=== PATIENT | male | born 1975 | race Caucasian/White ===

== ENCOUNTER 2019-06-19 14:21 | Emergency (ER) | payer BC, OTHER ==
[2019-06-19 14:34] VITALS: BMI 25.6
--- NOTE | 2019-06-19 15:25 | PDOC ---
History of Present Illness - General Chief Complaint: Pain Stated Complaint: SENT BY PCP/ABD PAIN Time Seen by Provider: 06/19/19 15:21 - History of Present Illness Initial Comments: 44 y/o M with hx significant for kidney stones and chronic watery diarrhea, present to the ER with 3 days of LLQ pain. that began after sexual intercourse. Timing/Duration: reports: intermittent Quality: reports: moderate, throbbing Abdominal Pain Onset Location: reports: LLQ Pain Radiation: reports: no radiation. denies: RLQ, epigastric, flank, groin Activities at Onset: reports: sexual intercourse Treatment Prior to Arrive: improves with: other (Pt. presented from urgent care , where he was given IM toradol and got a CT w/o contrast concerning for divertculitis. Sent from urgent care for further evaluation) Aggravating Factors: improves with: Movement, Change in position (denies fevers , chills, nausea, vomiting, bloody stools, dysuria, hematuria,) Past History - Past Medical History Allergies/Adverse Reactions: Allergies Allergy/AdvReac Type Severity Reaction Status Date / Time Penicillins Allergy Verified 06/19/19 14:29 clindamycin AdvReac Mild Verified 06/19/19 14:42 Home Medications: Ambulatory Orders Ciprofloxacin [Cipro -] 500 mg PO BID 10 Days #20 tablet 06/19/19 Metronidazole 500 mg PO TID 10 Days #30 tablet 06/19/19 - Psycho Social/Smoking Cessation Hx Smoking History: Current every day smoker Number of Cigarettes Smoked Daily: 0 Information on smoking cessation initiated: Yes Hx Alcohol Use: Yes Drug/Substance Use Hx: No *Physical Exam - Vital Signs Last Vital Signs Temp Pulse Resp BP Pulse Ox 98.1 F 83 18 121/79 97 06/19/19 14:29 06/19/19 14:29 06/19/19 14:29 06/19/19 14:29 06/19/19 14:29 - Physical Exam 06/19/19 17:11 06/19/19 17:06 PE: GENERAL: Awake, alert, and fully oriented, in no acute distress HEAD: No signs of trauma, normocephalic, atraumatic EYES: EOMI, sclera anicteric, conjunctiva clear ENT: Auricles normal inspection, hearing grossly normal, nares patent, oropharynx clear without exudates. Moist mucosa NECK: Normal ROM, supple, no lymphadenopathy, JVD, or masses LUNGS: No distress, speaks full sentences, clear to auscultation bilaterally HEART: Regular rate and rhythm, normal S1 and S2, no murmurs, rubs or gallops, peripheral pulses normal and equal bilaterally. ABDOMEN: Soft, tenderness and guarding in LLQ. no CVA tenderness. : no testicular tenderness, penile discharge. testicles in normal alignment. EXTREMITIES : Normal inspection, Normal range of motion, no edema. No clubbing or cyanosis NEUROLOGICAL: Cranial nerves II through XII grossly intact. Normal speech, no focal sensorimotor deficits SKIN: Warm, Dry, normal turgor, no rashes or lesions noted ED Treatment Course - LABORATORY CBC & Chemistry Diagram: 06/19/19 15:45 06/19/19 15:45 Medical Decision Making - Medical Decision Making 06/19/19 17:12 44 y/o M with hx significant for kidney stones and chronic watery diarrhea, present to the ER with 3 days of LLQ pain. that began after sexual intercourse. [facility] ([facility]) contacted for CT findings cbc,cmp, ua, urine culture. CT findings from [facility] Impression mild to moderate acaute diverticulitis in the mid descending colon with a small amount of fluid in the paracolic gutter no extraluminal gas scattered sigmoid and left colonic diverticula fatty liver tiny nonobstructing left renal calculus cbc,cmp, ua, unremarkable patient discharged with PO antibiotics, ciprofloxacin and flagyl. Discharge - Discharge Information Problems reviewed: Yes Clinical Impression/Diagnosis: Diverticulitis large intestine Qualifiers: Diverticulitis bleeding: without bleeding Diverticulitis complication: without perforation or abscess Qualified Code(s): K57.32 - Diverticulitis of large intestine without perforation or abscess without bleeding Condition: Stable Disposition: HOME - Admission No - Additional Discharge Information Prescriptions: Ciprofloxacin [Cipro -] 500 mg PO BID 10 Days #20 tablet Metronidazole 500 mg PO TID 10 Days #30 tablet - Follow up/Referral - Patient Discharge Instructions Patient Printed Discharge Instructions: DI for Diverticulitis Additional Instructions: Follow the enclosed discharge instructions. take flagyl 500 mg twice daily for two weeks. you should also take ciprofloxacin 500 mg twice daily for two weeks. take tylenol as needed for pain 500 mg every 6 hours . you should do liquid diet for two days until your pain is improving then slowly advanced to solids as tolerated with your level of pain. RETURN TO THE ER - if you develop fevers, chills -nausea, vomiting preventing you from keeping down any food - pain that is not resolved with over the counter medications - Post Discharge Activity
[2019-06-19] MEDS ORDERED: SODIUM CHLORIDE 0.9% 500 ML INFUS.BAG IV ONE (15:51)
[2019-06-19 16:16] LABS: HEMATOCRIT 40.2 % (35.4-49); HEMOGLOBIN 13.8 GM/dL (11.7-16.9); MCH 32.2 pg (25.7-33.7); MCHC 34.4 g/dl (32.0-35.9); MEAN CELL VOLUME 93.7 fl (80-96); MEAN PLT VOLUME 8.4 fl (7.5-11.1); PLATELET COUNT 207 K/MM3 (134-434); RBC 4.29 M/mm3 (4.00-5.60); RDW 12.8 % (11.9-15.9); WHITE BLOOD COUNT 8.6 K/mm3 (4.0-10.0)
[2019-06-19 16:37] LABS: ALBUMIN 3.7 g/dl (3.4-5.0); BILIRUBIN,TOTAL 0.7 mg/dL (0.2-1); BLOOD UREA NITROGEN 22.1 mg/dL (7-18); CALCIUM 8.7 mg/dL (8.5-10.1); CREATININE 1.2 mg/dL (0.55-1.3); POTASSIUM 4.1 mmol/L (3.5-5.1); TOT PROT 6.7 g/dl (6.4-8.2)
--- NOTE | 2019-06-19 16:53 | PDOC ---
Documentation entered by Sung Mendez SCRIBE, acting as scribe for Guilhemre Casanova MD. Guilherme Casanova MD: This documentation has been prepared by the Andrea burks Daniel, SCRIBE, under my direction and personally reviewed by me in its entirety. I confirm that the documentation accurately reflects all work, treatment, procedures, and medical decision making performed by me. Attending Attestation - Resident Resident Name: NoreenBerhanemiguelAlen - ED Attending Attestation I have performed the following: I have examined & evaluated the patient, The case was reviewed & discussed with the resident, I agree w/resident's findings & plan, Exceptions are as noted - HPI HPI: 06/19/19 16:44 The patient is a 44 year old male with a past medical history of kidney stones here today for evaluation of lower left quadrant abdominal pain. The patient reports that his lower left quadrant abdominal pain started on sunday night (06/16/19) after having sex with his girlfriend but did not think much of it at the time. He reports that the pain has gotten worse since then and went to [facility] on [facility] where he had a CT done and was told today that the scan showed diverticulitis. Patient reports that his abdominal pain is worse when he sits up from a supine position and that this feels different from his previous kidney stones pain. He also notes chronic diarrhea which he states is for the most part unchanged and denies any blood in his stool. Patient denies headache, lightheadedness. Denies fever, chills. Denies chest pain, shortness of breath. Denies nausea, vomiting. Allergies: penicillin, clindamycin - Physicial Exam PE: 06/19/19 16:51 GENERAL: The patient is awake, alert, and fully oriented, Nontoxic - in no acute distress. HEAD: Normocephalic, atraumatic. EYES: extraocular movements intact, sclera anicteric, conjunctiva clear. ENT: Normal voice, Moist mucous membranes. NECK: Normal range of motion, supple LUNGS: Breath sounds equal, clear to auscultation bilaterally. No wheezes, no rhonchi, no rales. HEART: Regular rate and rhythm, normal S1 and S2 without murmur, rub or gallop. ABDOMEN: Soft, moderte LLQ tenderness, No guarding, no rebound. No CVA tenderness EXTREMITIES: Normal range of motion, no edema. NEUROLOGICAL: No facial assymetry, Normal speech, PSYCH: Normal mood, normal affect. SKIN: Warm, Dry, normal turgor, - Medical Decision Making 06/19/19 16:51 The patient was sent to the ED for evaluation of possible diverticulitis, the patient did have a CAT scan done as an outpatient in urgent care. The patient denies any fever, chills, nausea, vomiting. Patient also notes that the pain seems to worsen when he sitting up, and seemed to starts shortly after having intercourse on Sunday. The patient's blood work was reviewed there is no signs of leukocytosis. Differential for the patient's symptoms includes possible diverticulitis versus MSK. Rather than expose the patient to another dose of radiation, will check with [facility] regarding the results of his initial CT if there is no signs of free air , abscess or phlegmon or other complications will treat the patient presumptively for diverticulitis. If the patient does feel worse he will return for repeat exam.
[2019-06-19 18:50] LABS: PH,URINE 5.5 (5.0-8.0); URINE APPEARANCE CLEAR; URINE BILIRUBIN NEGATIVE (NEGATIVE); URINE COLOR DK YELLOW; URINE GLUCOSE (UA) NEGATIVE (NEGATIVE); URINE KETONE NEGATIVE (NEGATIVE); URINE LEUK ESTERASE NEGATIVE (NEGATIVE); URINE NITRITE NEGATIVE (NEGATIVE); URINE PROTEIN TRACE (NEGATIVE)
[2019-06-19 19:01] VITALS: BP 123/78; PULSE 76; TEMP 97.8
== END 2019-06-19 19:02 | disposition home or self-care (01) ==
LOC: JER 14:21
PROC: 3E0337Z Introduction of Electrolytic and Water Balance Substance into Peripheral Vein, Percutaneous Approach (ICD-10-PCS; principal; 2019-06-19)
DX: K57.32 Diverticulitis of large intestine without perforation or abscess without bleeding (principal); N20.0 Calculus of kidney; Z88.0 Allergy status to penicillin; Z88.8 Allergy status to other drugs, medicaments and biological substances
CPT/HCPCS: 36415; 80053; 81003; 83690; 85027; 87086; 99282-25